=== PATIENT | male | born 1930 | race Caucasian/White ===

== ENCOUNTER 2018-05-31 06:21 | Emergency (ER) | payer MEDICARE, OTHER ==
[2018-05-31] MEDS ORDERED: ALBUTEROL/IPRATROPIUM 1 VIAL SOL ONE (06:34)
[2018-05-31] MEDS ORDERED: FUROSEMIDE 40 MG SOL IV ONE (06:39)
[2018-05-31] MEDS ORDERED: ALBUTEROL/IPRATROPIUM 1 VIAL SOL INH ONE (06:40)
[2018-05-31] MEDS ORDERED: FUROSEMIDE 40 MG SOL ONE (06:43)
[2018-05-31 06:51] LABS: ABG PH 7.32 (7.35-7.45)
[2018-05-31 07:10] LABS: BASOPHILS % (AUTO) 1 % (0-3); EOSINOPHILS % (AUTO) 1 % (0-9); HEMATOCRIT 30 % (39-53); HEMOGLOBIN 10.6 gm/dl (13.5-17.7); LYMPHOCYTES % (AUTO) 3.15 % (10-50); MEAN CORPUSCULAR HEMOGLOBIN 28.8 pg (27.0-32.0); MEAN CORPUSCULAR VOLUME 82 fL (80-100); NEUTROPHILS % (AUTO) 87.1 % (37-80)
[2018-05-31 07:20] LABS: ALBUMIN 3.3 gm/dl (3.4-5.0); BILIRUBIN,TOTAL 0.8 mg/dl (0.2-1.0); CALCIUM 8.3 mg/dl (8.5-10.1); CARBON DIOXIDE 23.3 mEq/L (21-32); CREATININE 1.42 mg/dl (0.80-1.30); CRP INFLAMMATORY 2.47 mg/dl (0.00-0.33); POTASSIUM 3.9 mMol/L (3.5-5.1); TOTAL PROTEIN 6.4 gm/dl (6.4-8.2)
[2018-05-31 07:21] LABS: TROP I 0.234 ng/ml (0.000-0.056)
[2018-05-31 07:34] VITALS: TEMP 97.5
[2018-05-31 07:38] LABS: INR 3.91 (0.86-1.12)
[2018-05-31] MEDS ORDERED: METOLAZONE 2.5 MG TAB PO SCH (07:45)
[2018-05-31] MEDS: SODIUM CHLORIDE 0.9% FLUSH 10 ML SOL IV PRN ×3 (07:50→10:26)
[2018-05-31] MEDS ORDERED: METOLAZONE 2.5 MG TABLET ONE (08:17)
[2018-05-31] MEDS ORDERED: HYDRALAZINE HYDROCHLORIDE 20 MG/ML SOL ONE (09:57)
[2018-05-31] MEDS ORDERED: HYDRALAZINE HYDROCHLORIDE 20 MG/ML SOL IV ONE (09:58)
[2018-05-31 10:01] VITALS: PULSE 92; RESP 36; O2SAT 94
[2018-05-31] MEDS ORDERED: MORPHINE SULFATE 10 MG/ML SOL IV ONE (10:21)
[2018-05-31] MEDS ORDERED: MORPHINE SULFATE 10 MG/ML SOL ONE (10:22)
[2018-05-31 10:58] VITALS: BP 188/97
== END 2018-05-31 10:40 | disposition short-term general hospital (02) | DRG 293 ==
LOC: ED 06:21
DX: I50.9 Heart failure, unspecified (principal); R06.02 Shortness of breath; R07.9 Chest pain, unspecified; I48.91 Unspecified atrial fibrillation; R00.0 Tachycardia, unspecified; I10 Essential (primary) hypertension; I45.4 Nonspecific intraventricular block; Z95.0 Presence of cardiac pacemaker; R06.2 Wheezing; R05 Cough; E11.9 Type 2 diabetes mellitus without complications
CPT/HCPCS: 36415; 36600; 71045; 71275; 80053; 82803; 83880; 84484; 85025; 85378; 85610; 93005; 96374; 96375; 99291; J0360; J1940; J2270; Q9967; A6232; A9270-GY